=== PATIENT | male | born 1960 ===

== ENCOUNTER 2017-02-14 05:56 | Day surgery (SDC) | payer MEDICAID ==
[2017-02-14 06:39] VITALS: BMI 22.8
[2017-02-14 06:53] VITALS: O2SAT 100
[2017-02-14] MEDS ORDERED: Propofol 10 mg/ml Inj (20 ML) ONE (07:55)
[2017-02-14] MEDS ORDERED: Midazolam 2 MG/2 ML VIAL ONE (07:55)
[2017-02-14 10:09] VITALS: BP 121/74; PULSE 72; RESP 19; TEMP 97
== END 2017-02-14 10:00 | disposition home or self-care (01) ==
LOC: C.ENDO 05:56
PROVIDERS: ATTEND Internal Medicine
DX: K29.70 Gastritis, unspecified, without bleeding (principal); R63.4 Abnormal weight loss; D12.3 Benign neoplasm of transverse colon; D12.5 Benign neoplasm of sigmoid colon; B96.81 Helicobacter pylori [H. pylori] as the cause of diseases classified elsewhere
CPT/HCPCS: 43239; 45388; 88305; 88313; 88342; J2001; J2250; J2704